=== PATIENT | female | born 1990 | race American Indian/Alaskan Native ===

== ENCOUNTER 2018-02-16 21:14 | Emergency (ER) | payer SELFPAY ==
[2018-02-16 21:26] VITALS: BP 141/65
[2018-02-16] MEDS ORDERED: TYLENOL PO ONE (21:34)
[2018-02-16] MEDS ORDERED: TYLENOL ONE (21:35)
--- NOTE | 2018-02-17 06:07 | Emergency Department Report ---
ED Headache HPI - General Chief Complaint: Headache Stated Complaint: HEADACHE,FEVER Source: patient, police - History of Present Illness Initial Comments: There is a 27-year-old female who complains of 4 days. Relieved by rest there is no nausea or vomiting . This headache is similar to hejuanita so sthe s Timing/Duration: 1 week, waxing and waning Quality: moderate, pressure Head Injury Location: frontal Recent Head Trauma: no recent headache/trauma, frequent headaches, occasional headaches, head trauma > 24 hrs ago Modifying Factors: improves with: movement Associated Symptoms: fatigue, fever/chills. denies: nausea/vomiting Allergies/Adverse Reactions: Allergies cranberry Allergy (Verified 04/09/16 12:30) Hives pineapple Allergy (Verified 04/09/16 12:30) Hives raspberry Allergy (Verified 04/09/16 12:30) Hives Home Medications: Ambulatory Orders oxyCODONE /ACETAMINOPHEN [Percocet 5/325] 1 tab PO Q6HR PRN #20 tablet 04/09/16 Acetaminophen [Tylenol Extra Strength] 1,000 mg PO QID PRN #30 02/17/18 Metoclopramide HCl [Reglan TAB] 5 mg PO TIDAC #30 tablet 02/17/18 Metoclopramide [Reglan] 10 mg PO TID #250 tab 02/17/18 diphenhydrAMINE [Benadryl CAP] 25 mg PO Q6HR PRN #30 capsule 02/17/18 ED Review of Systems ROS: Stated complaint: HEADACHE,FEVER Other details as noted in HPI Constitutional: denies: chills, fever ENT: throat pain, hearing loss, congestion Respiratory: cough Cardiovascular: as per HPI. denies: chest pain, dyspnea on exertion, edema, syncope, paroxysmal nocturnal dyspnea Endocrine: no symptoms reported Gastrointestinal: denies: abdominal pain, nausea, diarrhea Genitourinary: denies: urgency, dysuria, discharge Musculoskeletal: denies: back pain, joint swelling, arthralgia Skin: denies: rash, lesions Neurological: denies: headache, weakness, paresthesias Psychiatric: denies: anxiety, depression Hematological/Lymphatic: denies: easy bleeding, easy bruising ED Past Medical Hx - Past Medical History Previous Medical History?: Yes Additional medical history: OBESITY - Surgical History Past Surgical History?: Yes Additional Surgical History: umbilical hernia 2009 - Social History Smoking Status: Never Smoker Substance Use Type: Alcohol, Marijuana - Medications Home Medications: Home Medications Medication Instructions Recorded Confirmed Last Taken Type oxyCODONE /ACETAMINOPHEN [Percocet 1 tab PO Q6HR PRN #20 tablet 04/09/16 Unknown Rx 5/325] Acetaminophen [Tylenol Extra 1,000 mg PO QID PRN #30 02/17/18 Unknown Rx Strength] Metoclopramide HCl [Reglan TAB] 5 mg PO TIDAC #30 tablet 02/17/18 Unknown Rx Metoclopramide [Reglan] 10 mg PO TID #250 tab 02/17/18 Unknown Rx diphenhydrAMINE [Benadryl CAP] 25 mg PO Q6HR PRN #30 capsule 02/17/18 Unknown Rx ED Physical Exam - General Limitations: No Limitations General appearance: alert, in no apparent distress - Head Head exam: Present: atraumatic, normocephalic - Eye Eye exam: Present: normal appearance - ENT ENT exam: Present: mucous membranes moist - Neck Neck exam: Present: normal inspection, full ROM. Absent: lymphadenopathy, thyromegaly - Respiratory Respiratory exam: Present: normal lung sounds bilaterally. Absent: respiratory distress, wheezes, chest wall tenderness - Cardiovascular Cardiovascular Exam: Present: regular rate, normal rhythm. Absent: systolic murmur, diastolic murmur, rubs, gallop - GI/Abdominal GI/Abdominal exam: Present: soft, normal bowel sounds - Extremities Exam Extremities exam: Present: normal inspection - Back Exam Back exam: Present: normal inspection - Neurological Exam Neurological exam: Present: alert, oriented X3, CN II-XII intact, normal gait, motor sensory deficit - Psychiatric Psychiatric exam: Present: normal affect, normal mood - Skin Skin exam: Present: warm, dry, intact, normal color. Absent: rash ED Course Vital Signs 02/16/18 21:19 Temperature 99.7 F H Pulse Rate 95 H Respiratory 20 Rate Blood Pressure 141/65 O2 Sat by Pulse 98 Oximetry ED Medical Decision Making - Medical Decision Making This resistances sinus headache versus sinusitis pain not relieved by usual Excedrin pain was relieved with medications given in ED we'll DC to home with saline was given Decadron 10 IV DC to home with Tylenol Reglan and Benadryl patient will follow up with PCP in 2-3 days . He verbalizes understanding and agreement with sign please DC home in stable condition at this time Critical care attestation.: If time is entered above; I have spent that time in minutes in the direct care of this critically ill patient, excluding procedure time. ED Disposition Clinical Impression: Sinus headache Disposition: DC-01 TO HOME OR SELFCARE Is pt being admited?: No Does the pt Need Aspirin: No Condition: Good Instructions: Acute Headache (ED), Cluster Headache (ED) Prescriptions: Acetaminophen [Tylenol Extra Strength] 1,000 mg PO QID PRN #30 PRN Reason: headache diphenhydrAMINE [Benadryl CAP] 25 mg PO Q6HR PRN #30 capsule PRN Reason: Headache Metoclopramide [Reglan] 10 mg PO TID #250 tab Metoclopramide HCl [Reglan TAB] 5 mg PO TIDAC #30 tablet Referrals: PRIMARY CARE, [Primary Care Provider] - 3-5 Days
[2018-02-17] MEDS ORDERED: BANOPHEN PO ONE (06:15)
[2018-02-17] MEDS ORDERED: REGLAN PO ONE (06:15)
[2018-02-17] MEDS ORDERED: BENADRYL PO ONE (06:15)
[2018-02-17] MEDS ORDERED: DECADRON IM ONE (06:15)
== END 2018-02-17 07:06 | disposition home or self-care (01) ==
LOC: ED 21:14
DX: R51 Headache (principal); R50.9 Fever, unspecified; F12.10 Cannabis abuse, uncomplicated; Z91.018 Allergy to other foods
CPT/HCPCS: 96372; 99282; J1100